=== PATIENT | female | born 1995 | race Caucasian/White ===

== ENCOUNTER 2017-03-16 21:23 | Emergency (ER) | payer OTHER ==
[2017-03-16 21:50] VITALS: BP 113/57; PULSE 52; RESP 16; TEMP 98.4; O2SAT 99
[2017-03-16] MEDS ORDERED: predniSONE 20 MG TAB PO ONE (21:59)
[2017-03-16] MEDS ORDERED: diphenhydrAMINE 25 MG CAP PO ONE (21:59)
[2017-03-16] MEDS ORDERED: FAMOTIDINE 20 MG TAB PO ONE (21:59)
--- NOTE | 2017-03-16 22:05 | EDPHY ---
H & P Time Seen by Provider: 03/16/17 21:53 HPI/ROS: HPI Rash. 21-year-old female by private vehicle with her father. This patient reports that she noticed a small red rash on her neck earlier this morning. She reports it went away. She reports that this evening and about 2 hours prior to arrival she developed a rash again on her upper extremities and the front and back of her torso as well as her neck. No lower extremity involvement. No oral involvement. She denies any wheezing or shortness of breath. No stridor. No sensation of swelling in her throat or difficulty swallowing. No other symptoms. She denies any new medications. No change in diet. No change in detergents. She has no other complaints. Patient reports that she took 1-2 Benadryl tablets prior to arrival. ROS: Constitutional: No fever, no chills. No weakness. Eyes: No discharge. No changes in vision. ENT: No sore throat. No nasal congestion or rhinorrhea. Respiratory: No cough. No shortness of breath. Cardiac: No chest pain, no palpitations. Gastrointestinal: No abdominal pain, no vomiting, no diarrhea. Musculoskeletal: No back pain. No neck pain. No myalgias or arthralgias. Skin: As above. Neurological: No headache. No focal weakness or altered sensation. Past medical history: She denies any past medical history. Social history: Here with her father. Nonsmoker. Physical Exam: General Appearance: Alert, no distress. This patient is responding to questions appropriately and in full sentences. This patient appears well- hydrated and well-nourished. Eyes: Pupils equal and round no pallor or injection. No lid edema, erythema or injection. ENT, Mouth: Mucous membranes are moist. The pharyngeal tissues are unremarkable. No edema or swelling. No asymmetry suggestive of abscess. No erythema or exudates. No stridor on auscultation of her neck. Respiratory: There are no retractions, lungs are clear to auscultation with good air movement bilaterally. Cardiovascular: Regular rate and rhythm. No murmur. Neurological: Motor sensory function is grossly intact. Cranial nerves are normal. Gait is normal. Skin: Warm and dry, diffuse urticarial, erythematous macular papular blanching rash over the torso, upper extremities and partially involving the lower neck both anteriorly and posteriorly Musculoskeletal: Neck is supple and nontender. No lymphadenopathy. Extremities are symmetrical. All joints range without pain or impingement. Psychiatric: No agitation. No depression. Database: EKG: Imaging: Procedures: Emergency department course: Patient given 25 mg of Benadryl, 40 mg of Pepcid and 60 mg of prednisone orally in the emergency department. Her vital signs have been reviewed. She does not present as anaphylaxis. There is no oral involvement. I will send her home with a prescription for these medications to be taken over the next several days. She and her father have been given strict instructions to return to the emergency department immediately for worsening symptoms, difficulty breathing, any sensation of swelling in her throat or other serious concerns. They are in agreement with this plan. Follow up with her primary care physician was discussed. All of their questions were answered. She was discharged in good condition. Differential Diagnosis: The differential diagnosis on this patient includes but is not limited to urticaria, hypersensitivity rash. Anaphylaxis, anaphylactoid reaction, erythema multiforme, Perla-Bong syndrome, bullous pemphigoid, pemphigus vulgaris, erythema nodosum unlikely. This represents a partial list of diagnoses considered. These considerations are based on history, physical exam, past history, reassessment and diagnostic testing. Constitutional: Initial Vital Signs Temperature (C) 36.9 C 03/16/17 21:44 Heart Rate 52 L 03/16/17 21:44 Respiratory Rate 16 03/16/17 21:44 Blood Pressure 113/57 L 03/16/17 21:44 O2 Sat (%) 99 03/16/17 21:44 O2 Delivery Mode Room Air Allergies/Adverse Reactions: No Known Allergies Allergy (Unverified 03/16/17 21:49) Home Medications: Medication Instructions Recorded Bcp 03/16/17 Famotidine [Pepcid] 40 mg PO BID #12 tab 03/16/17 diphenhydrAMINE [Benadryl 50 MG 50 mg PO Q4-6PRN PRN #10 cap 03/16/17 (*)] predniSONE [prednisone 20mg (RX)] 60 mg PO DAILY #9 tab 03/16/17 Departure - Departure Disposition: Home, Routine, Self-Care Clinical Impression: Rash Condition: Good Instructions: Acute Rash (ED), Urticaria (ED) Additional Instructions: Read and follow provided instructions. Follow-up with your primary care physician in 1-2 days for re-evaluation as needed. Take medication as prescribed. Return to the emergency department for worsening rash, difficulty swallowing, sensation of swelling in her throat, wheezing or difficulty breathing or other serious concerns. Referrals: NONE *PRIMARY CARE P,. [Primary Care Provider] - As per Instructions Prescriptions: diphenhydrAMINE [Benadryl 50 MG (*)] 50 mg PO Q4-6PRN PRN #10 cap PRN Reason: Rash Famotidine [Pepcid] 40 mg PO BID #12 tab predniSONE [prednisone 20mg (RX)] 60 mg PO DAILY #9 tab
== END 2017-03-16 22:29 | disposition home or self-care (01) ==
LOC: CED 21:23
DX: R21 Rash and other nonspecific skin eruption (principal)